=== PATIENT | male | born 1940 | race Caucasian/White ===

== ENCOUNTER 2019-06-20 17:46 | Emergency (ER) | payer MEDICARE ==
[~2019-06-20] VITALS: Ht 177.8 cm; Wt 100.0 kg
[2019-06-20 19:16] LABS: BASOPHILS % 0.3 % (0.0-2.0); EOSINOPHILS % 6.5 % (0.0-5.0); HEMATOCRIT. 32.6 % (42.0-52.0); HEMOGLOBIN. 11.1 g/dL (14.0-18.0); LYMPHOCYTES % 18.4 % (20.0-50.0); MEAN CORPUSCULAR HEMOGLOBIN 33.8 pg (28.0-32.0); MEAN CORPUSCULAR VOLUME 99.2 fL (80.0-94.0); MEAN PLATELET VOLUME 7.8 fl (7.4-10.4); MONOCYTES % 9.5 % (2.0-8.0); NEUTROPHILS % 65.3 % (40.0-76.0); PLATELET 152 x1000/uL (130-400); RED BLOOD CELL COUNT 3.29 mill/uL (4.7-6.1); RED CELL DISTRIBUTION WIDTH 14.7 % (11.6-14.6)
[2019-06-20 19:19] LABS: CHLORIDE 102 mEq/L (98-107)
[2019-06-20] MEDS ORDERED: TRAMADOL 50MG TABLET PO ONE (21:00)
[2019-06-20 23:09] VITALS: BP 161/95
== END 2019-06-20 23:17 | disposition home or self-care (01) ==
LOC: ER 17:46
DX: S16.1XXA Strain of muscle, fascia and tendon at neck level, initial encounter (principal); I12.0 Hypertensive chronic kidney disease with stage 5 chronic kidney disease or end stage renal disease; N18.6 End stage renal disease; Z99.2 Dependence on renal dialysis; Z95.5 Presence of coronary angioplasty implant and graft; V49.88XA Car occupant (driver) (passenger) injured in other specified transport accidents, initial encounter; Y93.89 Activity, other specified; Y92.89 Other specified places as the place of occurrence of the external cause; Y99.8 Other external cause status
CPT/HCPCS: 36415; 71045; 72040; 83880; 84484; 93005; 99284